=== PATIENT | female | born 1950 | race Caucasian/White ===

== ENCOUNTER → 2017-11-04 | Emergency (ER) | payer MEDICARE, BC ==
[~2017-11-04] VITALS: Ht 172.7 cm; Wt 125.9 kg
[~2017-11-04] MED LIST: ACIDOPHILUS PO; ACTOS 15MG TAB15 MG PO; ACTOS 45MG45 MG/TAB PO; ADVIL200 MG PO; ASPIRIN 81M81 MG/TA2 PO; ASPIRIN E.C. 8181 MG PO; AVAPRO; AVAPRO TAB150 MG/TAB PO; BYETTA; DIABETA 5MG5 MG/TAB PO; EPA1000 MG PO; FISH OIL1 IU PO; GLUCOPHAGE500 MG/TAB PO; HCTZ 25MG TAB25 MG PO; METFORMIN; MOBIC 7.5MG7.5 MG PO; MODURETIC 5/501 TA1 PO; MOTRIN 800800 MG/TAB PO; Metformin PO; NASAL SPRAY 1515 ML NS; STOOL SOFTENER100 M2 PO; VICTOZA; VICTOZA6 MG/ML SC; ZOCOR; ZOCOR 10MG10 MG PO; ZOLOFT; ZOLOFT 50MG50 MG PO
[2017-11-04 12:43] VITALS: BP 172/71; PULSE 80; TEMP 98.8
== END ==
LOC: COL.ER 12:34
DX: M25.511 Pain in right shoulder (principal); I10 Essential (primary) hypertension; E11.9 Type 2 diabetes mellitus without complications; Z79.82 Long term (current) use of aspirin; Z79.84 Long term (current) use of oral hypoglycemic drugs; W19.XXXA Unspecified fall, initial encounter
CPT/HCPCS: J1885

== ENCOUNTER → 2018-02-25 | Outpatient (CLI) | payer MEDICARE, BC | LOC: MC.RAD 10:00 | DX: Z12.31 Encounter for screening mammogram for malignant neoplasm of breast (principal) ==